=== PATIENT | male | born 1985 | race Caucasian/White ===

== ENCOUNTER → 2018-02-27 13:57 | Outpatient (CLI) | payer BC, SELFPAY ==
--- NOTE | 2018-02-27 | DI.RAD.S_ITS ---
PROCEDURE: XR SHOULDER LT MIN 2V INDICATIONS: CHRONIC LEFT SHOULDER PAIN TECHNIQUE: 3 views of the shoulder were acquired. COMPARISON: None. FINDINGS: Bones: No fractures or dislocations. No suspicious bony lesions. Visualized ribs appear intact. Soft tissues: No suspicious soft tissue calcifications. IMPRESSION: Normal for age, source of current symptoms is not seen. Dictated by: Royal Ram M.D. on 02/27/2018 at 14:53 Approved by: Royal Ram M.D. on 02/27/2018 at 14:53
== END ==
PROVIDERS: Visit Provider Nurse Practitioner Family
DX: M25.512 Pain in left shoulder (principal); G89.29 Other chronic pain
CPT/HCPCS: 73030

== ENCOUNTER → 2018-03-07 10:27 | Outpatient (CLI) | payer BC, SELFPAY ==
[2018-03-07 13:14] LABS: Urine N gonorrhoeae NOT DETECTED
[2018-03-07 13:50] LABS: Urine Chlamydia NOT DETECTED
[2018-03-08 19:34] LABS: HIV Ag/Ab, 4th Gen Nonreactive (Nonreactive)
[2018-03-08 23:17] LABS: RPR Screen Nonreactive (Nonreactive)
== END ==
PROVIDERS: Visit Provider Nurse Practitioner Family
DX: Z11.3 Encounter for screening for infections with a predominantly sexual mode of transmission (principal)
CPT/HCPCS: 36415; 86592; 86703; 87491; 87591